=== PATIENT | male | born 1990 | race Caucasian/White ===

== ENCOUNTER 2024-01-22 10:42 | Outpatient (CLI) | payer OTHER ==
--- NOTE | 2024-01-22 11:14 | CARDIAC PROCEDURE NOTE ---
Stress Test Report Service Date: 01/22/24 Service Time: 11:00 Ordering Provider: Cornelius Huffman MD Indication for Test: Assess chest discomfort. Significant Medical History: "Velasquez" is referred for an ETT today, to evaluate intermittent chest discomfort episodes, occurring over approximately the past 6 months. There does not seem to be a pattern of occurrence, nor identifiable precipitants or alleviating factors. He describes a lower left chest sharp, "stabbing" or "pulling" sensation, sometimes associated with radiation lower and more posteriorly, but not associated with shortness of breath, nausea, vomiting or diaphoresis. Typic al duration of symptoms is in the range of 1-2 minutes, the longest episode may have lasted 5 to 10 minutes. He remains active with walking several times weekly, though has decreased the intensity of his physical activities while awaiting today's study. He feels that his stamina remains good. Cardiac Risk Factors: The only identified classical risk factor for CAD is the patient's paternal grandfather having had CAD and undergoing CABG surgery in his 70's. 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 Type of Stress Test: Exercise Treadmill Test (ETT) Procedure: -Exercise Treadmill Test- After signing informed consent, the patient performed treadmill exercise using a Miguel protocol. The patient exercised for 10 minutes 30 seconds and achieved a peak heart rate of 185 (97 percent predicted maximum heart rate for age), and an estimated workload of 12.6 METS. The test was terminated due to fatigue/shortness of breath. Resting heart rate: 79 Peak heart rate: 185 Normal response to exercise. Resting BP: 115/74 Peak BP: 163/76 Normal BP response to exercise. Room air oxygen saturation ranged between 94-98%. Rhythm during exercise: Sinus rhythm throughout (with resting sinus arrhythmia) and no ectopy observed. Symptoms: He denied experiencing any chest pressure/discomfort/pain whatsoever. EKG at rest showed normal sinus rhythm throughout, without ectopy nor arrhythmia. EKG at peak stress showed no ischemia by EKG criteria. In Recovery BP decreased quickly towards baseline level with slower decrease is NR (HR was 126, BP 133/61 at 5:00) . No imaging was ordered with this stress test. Danielito Calderón MD, was present throughout this treadmill stress study and supervised it in its entirety. Summary: 1) Exercise tolerance was moderately below average for age and sex, as evidenced by CHIDI of 23%. 2) Normal resting EKG. 3) Adequate level of exercise was achieved on this treadmill stress test. 4) Normal BP response to exercise. 5) No ischemic changes by EKG criteria were seen at peak stress. 6) No imaging was ordered with this test. Conclusions and Recommendations: 1) Overall these should be reassuring results, with exertion to his target HR level, without chest pain or ST changes indicative of inducible ischemia. 2) He awaits completion of a patch rhythm study. [facility]
== END 2024-01-22 10:43 | disposition home or self-care (01) ==
LOC: DI 10:42
PROVIDERS: ATTEND Student in an Organized Health Care Education/Training Program
DX: R07.9 Chest pain, unspecified (principal)
CPT/HCPCS: 93017